=== PATIENT | male | born 1965 | race Caucasian/White ===

== ENCOUNTER 2021-01-08 12:43 | Emergency (ER) | payer OTHER ==
[~2021-01-08 12:43] MED LIST: AMITRIPTYLINE H25 MG PO; ASPIR 8181 MG PO; ASPIRIN EC81 MG PO; AUGMENTIN 875-1 EACH PO; BACTRIM D.S. TAB1 EA PO; CATAPRES 0.1MG0.1 MG PO; CELEXA20 MG PO; CLARITIN10 MG PO; COLACE 100MG C100 MG PO; CYMBALTA 30 MG30 MG PO; EFFEXOR 25 MG T25 MG PO; ENSURE LIQUID237 ML PO; ETODOLAC400 MG PO; HYDROCHLOROTHIA25 MG PO; IBUPROFEN800 MG PO; LIPITOR TAB 2020 MG PO; NEURONTIN 400400 MG PO; NORVASC 5 MG TAB5 MG PO; OXYCODONE HCL30 MG PO; PAIN & FEVER325 MG PO; PHENERGAN 25 MG25 M1 PO; PROTONIX40 MG PO; SYNTHROID 100100 MCG PO; TYLENOL 325MG325 MG PO; TYLENOL EL160 MG/5 M PO; ZOFRAN4 MG PO
[2021-01-08 14:20] LABS: HEMOGLOBIN 15.9 gm/dl (14.0-17.5)
[2021-01-08 14:23] LABS: RED BLOOD COUNT 5.46 M/UL (4.20-5.50); WHITE BLOOD COUNT 10.2 K/UL (4.5-11.0)
[2021-01-08 15:09] LABS: BUN/CREATININE RATIO 6 (0-10)
== END 2021-01-08 19:50 | disposition short-term general hospital (02) ==
LOC: ER1 12:43
PROVIDERS: Physician Assistant
DX: N21.1 Calculus in urethra (principal); R07.89 Other chest pain; I10 Essential (primary) hypertension; R13.10 Dysphagia, unspecified; Z85.89 Personal history of malignant neoplasm of other organs and systems; Z88.1 Allergy status to other antibiotic agents; Z88.8 Allergy status to other drugs, medicaments and biological substances
CPT/HCPCS: 71045; 80053; 81001; 82550; 82553; 83690; 83874; 84484; 85025; 93005; 96374; 96375; 96376; 99285; J2270; J2405; Q9967

== ENCOUNTER 2021-01-16 08:25 | Emergency (ER) | payer OTHER ==
[2021-01-16 09:37] LABS: HEMOGLOBIN 14.9 gm/dl (14.0-17.5); RED BLOOD COUNT 4.96 M/UL (4.20-5.50); WHITE BLOOD COUNT 10.7 K/UL (4.5-11.0)
[2021-01-16 09:57] LABS: BUN/CREATININE RATIO 11 (0-10)
[2021-01-16] MEDS ORDERED: TORADOL 10 MG T10 MG PO (14:14)
== END 2021-01-16 14:30 | disposition home or self-care (01) ==
LOC: ER1 08:25
PROVIDERS: Physician Assistant
DX: N20.2 Calculus of kidney with calculus of ureter (principal); J44.9 Chronic obstructive pulmonary disease, unspecified; F17.210 Nicotine dependence, cigarettes, uncomplicated; Z43.1 Encounter for attention to gastrostomy; Z87.442 Personal history of urinary calculi; Z90.89 Acquired absence of other organs; Z88.8 Allergy status to other drugs, medicaments and biological substances; Z85.21 Personal history of malignant neoplasm of larynx; Z71.6 Tobacco abuse counseling
CPT/HCPCS: 51702; 80048; 81001; 85025; 99284; G0480; J1885

== ENCOUNTER 2021-01-18 08:32 | Emergency (ER) | payer OTHER ==
[~2021-01-18 08:32] MED LIST changes: +TORADOL 10 MG T10 MG PO
== END 2021-01-18 09:55 | disposition home or self-care (01) ==
LOC: ER1 08:32
DX: Z46.6 Encounter for fitting and adjustment of urinary device (principal); Z93.0 Tracheostomy status
CPT/HCPCS: 99283

== ENCOUNTER 2021-01-21 18:04 | Emergency (ER) | payer OTHER ==
[2021-01-21] MEDS ORDERED: BENADRYL 50MG C50 MG PO (19:04)
[2021-01-21] MEDS ORDERED: PEPCID40 MG PO (19:04)
== END 2021-01-21 21:00 | disposition home or self-care (01) ==
LOC: ER1 18:04
DX: L51.9 Erythema multiforme, unspecified (principal); I10 Essential (primary) hypertension; Z85.89 Personal history of malignant neoplasm of other organs and systems; Z90.89 Acquired absence of other organs
CPT/HCPCS: 96372; 99282; J2930

== ENCOUNTER 2021-02-27 17:22 | Emergency (ER) | payer OTHER ==
[~2021-02-27 17:22] MED LIST changes: +BENADRYL 50MG C50 MG PO; +PEPCID40 MG PO
[2021-02-27 18:38] LABS: HEMOGLOBIN 16.1 gm/dl (14.0-17.5); RED BLOOD COUNT 5.53 M/UL (4.20-5.50); WHITE BLOOD COUNT 9.2 K/UL (4.5-11.0)
[2021-02-27 19:00] LABS: BUN/CREATININE RATIO 8 (0-10)
[2021-02-27] MEDS ORDERED: KLOR-CON M1010 MEQ PO (22:25)
[2021-02-28] MEDS ORDERED: AMLODIPINE BESY10 MG PO ×2 (12:10→15:26)
[2021-02-28] MEDS ORDERED: HYDROCODON-ACE1 EAC3 PO ×2 (12:17→15:44)
[2021-02-28] MEDS ORDERED: HYDROCODON-ACE1 EAC4 PO (16:07)
== END 2021-02-27 23:45 | disposition home or self-care (01) ==
LOC: ER1 17:22
PROVIDERS: Nurse Practitioner
DX: E87.6 Hypokalemia (principal); R91.1 Solitary pulmonary nodule; Z20.822 Contact with and (suspected) exposure to COVID-19
CPT/HCPCS: 0240U; 71046; 80053; 81001; 82550; 82553; 83605; 83735; 84484; 85025; 93005; 96365; 96375; 99284; J0696; J1650; J1885; J2060; J2765; J3475; J3480; J7070; Q9967

== ENCOUNTER 2021-02-28 10:22 | Emergency (ER) | payer OTHER ==
[~2021-02-28 10:22] MED LIST changes: +KLOR-CON M1010 MEQ PO
[2021-02-28] MEDS ORDERED: AMLODIPINE BESY10 MG PO ×2 (12:10→15:26)
[2021-02-28] MEDS ORDERED: HYDROCODON-ACE1 EAC3 PO ×2 (12:17→15:44)
[2021-02-28] MEDS ORDERED: HYDROCODON-ACE1 EAC4 PO (16:07)
== END 2021-02-28 13:30 | disposition home or self-care (01) ==
LOC: ER1 10:22
DX: R91.1 Solitary pulmonary nodule (principal); I10 Essential (primary) hypertension; Z79.899 Other long term (current) drug therapy; Z88.8 Allergy status to other drugs, medicaments and biological substances
CPT/HCPCS: 99283; J0780

== ENCOUNTER 2021-03-03 10:20 | Emergency (ER) | payer OTHER ==
[~2021-03-03 10:20] MED LIST changes: +AMLODIPINE BESY10 MG PO; +HYDROCODON-ACE1 EAC3 PO; +HYDROCODON-ACE1 EAC4 PO
[2021-03-03 11:26] LABS: HEMOGLOBIN 15.1 gm/dl (14.0-17.5); RED BLOOD COUNT 5.1 M/UL (4.20-5.50); WHITE BLOOD COUNT 9.4 K/UL (4.5-11.0)
[2021-03-03 12:01] LABS: BUN/CREATININE RATIO 9 (0-10)
[2021-03-03] MEDS ORDERED: HYDROCODON-ACE1 EAC4 PO (14:12)
== END 2021-03-03 14:21 | disposition home or self-care (01) ==
LOC: ER1 10:20
PROVIDERS: Physician Assistant Medical
DX: J43.9 Emphysema, unspecified (principal); R07.89 Other chest pain; R91.1 Solitary pulmonary nodule; I10 Essential (primary) hypertension; Z85.01 Personal history of malignant neoplasm of esophagus; Z20.822 Contact with and (suspected) exposure to COVID-19
CPT/HCPCS: 71045; 80053; 82550; 82553; 83605; 83874; 84484; 85025; 93005; 99284; U0002

== ENCOUNTER 2021-03-08 13:57 | Emergency (ER) | payer OTHER ==
[2021-03-08 15:47] LABS: HEMOGLOBIN 15.1 gm/dl (14.0-17.5); RED BLOOD COUNT 5.09 M/UL (4.20-5.50); WHITE BLOOD COUNT 10.3 K/UL (4.5-11.0)
[2021-03-08 16:31] LABS: BUN/CREATININE RATIO 8 (0-10)
== END 2021-03-08 18:15 | disposition home or self-care (01) ==
LOC: ER1 13:57
DX: B34.9 Viral infection, unspecified (principal); J44.9 Chronic obstructive pulmonary disease, unspecified; F17.210 Nicotine dependence, cigarettes, uncomplicated; Z20.822 Contact with and (suspected) exposure to COVID-19
CPT/HCPCS: 0240U; 71045; 80053; 81001; 83690; 85025; 96374; 99283

== ENCOUNTER 2021-03-25 11:45 | Emergency (ER) | payer OTHER ==
[2021-03-25 12:47] LABS: HEMOGLOBIN 14.5 gm/dl (14.0-17.5); RED BLOOD COUNT 4.94 M/UL (4.20-5.50)
[2021-03-25 13:31] LABS: BUN/CREATININE RATIO 11 (0-10)
[2021-03-25] MEDS ORDERED: HYDROCODON-ACE1 EAC4 PO (16:01)
[2021-03-25] MEDS ORDERED: ASPIRIN CHEWABL81 MG PO (16:03)
== END 2021-03-25 17:55 | disposition home or self-care (01) ==
LOC: ER1 11:45
PROVIDERS: Emergency Medicine
DX: R07.9 Chest pain, unspecified (principal); E87.6 Hypokalemia; I10 Essential (primary) hypertension; E78.00 Pure hypercholesterolemia, unspecified; C78.00 Secondary malignant neoplasm of unspecified lung; Z85.850 Personal history of malignant neoplasm of thyroid
CPT/HCPCS: 80053; 82550; 82553; 83874; 83880; 84484; 85025; 93005; 96365; 96366; 96375; 99285; J2270; J2405; J7030; Q9967

== ENCOUNTER 2021-04-02 10:50 | Emergency (ER) | payer OTHER ==
[~2021-04-02 10:50] MED LIST changes: +ASPIRIN CHEWABL81 MG PO
[2021-04-02 12:06] LABS: HEMOGLOBIN 14.2 gm/dl (14.0-17.5); RED BLOOD COUNT 4.77 M/UL (4.20-5.50); WHITE BLOOD COUNT 6.7 K/UL (4.5-11.0)
[2021-04-02 12:21] LABS: BUN/CREATININE RATIO 12 (0-10)
[2021-04-02] MEDS ORDERED: ASPIRIN CHEWABL81 MG PO (16:13)
== END 2021-04-02 16:24 | disposition home or self-care (01) ==
LOC: ER1 10:50
PROVIDERS: Emergency Medicine
DX: R07.9 Chest pain, unspecified (principal); C34.11 Malignant neoplasm of upper lobe, right bronchus or lung; I10 Essential (primary) hypertension; E87.6 Hypokalemia
CPT/HCPCS: 80053; 82550; 82553; 83874; 84484; 85025; 85610; 85730; 93005; 96374; 96375; 96376; 99285; J2270; J2405; Q9967

== ENCOUNTER 2021-04-06 11:17 | Emergency (ER) | payer OTHER ==
[2021-04-06 12:10] LABS: HEMOGLOBIN 13.3 gm/dl (14.0-17.5); RED BLOOD COUNT 4.52 M/UL (4.20-5.50); WHITE BLOOD COUNT 6.8 K/UL (4.5-11.0)
[2021-04-06 12:36] LABS: BUN/CREATININE RATIO 7 (0-10)
== END 2021-04-06 16:58 | disposition home or self-care (01) ==
LOC: ER1 11:17
PROVIDERS: Emergency Medicine
DX: R07.9 Chest pain, unspecified (principal); Z85.12 Personal history of malignant neoplasm of trachea; Z85.850 Personal history of malignant neoplasm of thyroid
CPT/HCPCS: 71045; 80053; 82550; 82553; 83874; 84484; 85025; 93005; 96374; 96375; 96376; 99285; J2270; J2405; J7040; Q9967

== ENCOUNTER 2021-04-09 10:11 | Emergency (ER) | payer OTHER ==
[2021-04-09 11:57] LABS: HEMOGLOBIN 15.6 gm/dl (14.0-17.5); RED BLOOD COUNT 5.19 M/UL (4.20-5.50); WHITE BLOOD COUNT 11.1 K/UL (4.5-11.0)
[2021-04-09 12:14] LABS: BUN/CREATININE RATIO 9 (0-10)
[2021-04-09] MEDS ORDERED: ZOFRAN ODT 4 MG4 MG PO (15:10)
[2021-04-09] MEDS ORDERED: IMODIUM CAP 2 MG2 MG PO (15:10)
== END 2021-04-09 15:55 | disposition home or self-care (01) ==
LOC: ER1 10:11
PROVIDERS: Family Medicine
DX: R11.2 Nausea with vomiting, unspecified (principal); R19.7 Diarrhea, unspecified; R10.9 Unspecified abdominal pain; R91.8 Other nonspecific abnormal finding of lung field; Z88.8 Allergy status to other drugs, medicaments and biological substances; Z88.1 Allergy status to other antibiotic agents; Z85.118 Personal history of other malignant neoplasm of bronchus and lung
CPT/HCPCS: 80053; 83605; 83690; 83735; 85025; 96374; 96375; 99284; J2270; J2405; Q9967

== ENCOUNTER 2021-05-07 10:48 | Emergency (ER) | payer OTHER ==
[~2021-05-07 10:48] MED LIST changes: +IMODIUM CAP 2 MG2 MG PO; +ZOFRAN ODT 4 MG4 MG PO
[2021-05-07] MEDS ORDERED: HYDROCODONE-AC1 EACH PO (13:01)
== END 2021-05-07 13:20 | disposition home or self-care (01) ==
LOC: ER1 10:48
DX: M25.511 Pain in right shoulder (principal)
CPT/HCPCS: 71046; 99283

== ENCOUNTER 2021-05-20 13:05 | Emergency (ER) | payer OTHER ==
[~2021-05-20 13:05] MED LIST changes: +HYDROCODONE-AC1 EACH PO
[2021-05-20 14:46] LABS: HEMOGLOBIN 13.4 gm/dl (14.0-17.5); RED BLOOD COUNT 4.67 M/UL (4.20-5.50); WHITE BLOOD COUNT 7.9 K/UL (4.5-11.0)
[2021-05-20 15:03] LABS: BUN/CREATININE RATIO 9 (0-10)
[2021-05-20] MEDS ORDERED: TESSALON PERLE100 MG PO (15:56)
[2021-05-20] MEDS ORDERED: ASPIRIN CHEWABL81 MG PO (15:56)
[2021-05-20] MEDS ORDERED: VENTOLIN HFA 66.7 GM INH (15:56)
== END 2021-05-20 16:05 | disposition home or self-care (01) ==
LOC: ER1 13:05
PROVIDERS: Physician Assistant
DX: J40 Bronchitis, not specified as acute or chronic (principal); R07.9 Chest pain, unspecified; Z20.822 Contact with and (suspected) exposure to COVID-19
CPT/HCPCS: 71045; 80053; 82550; 82553; 83874; 84484; 85025; 93005; 99285; U0002

== ENCOUNTER 2021-06-02 12:55 | Emergency (ER) | payer OTHER ==
[~2021-06-02 12:55] MED LIST changes: +TESSALON PERLE100 MG PO; +VENTOLIN HFA 66.7 GM INH
[2021-06-02 13:34] LABS: RED BLOOD COUNT 4.97 M/UL (4.20-5.50); WHITE BLOOD COUNT 9.5 K/UL (4.5-11.0)
[2021-06-02 13:54] LABS: BUN/CREATININE RATIO 8 (0-10)
== END 2021-06-02 17:03 | disposition home or self-care (01) ==
LOC: ER1 12:55
PROVIDERS: Physician Assistant Medical
DX: R05 Cough (principal); R51.9 Headache, unspecified; E87.6 Hypokalemia; Z85.850 Personal history of malignant neoplasm of thyroid; Z20.822 Contact with and (suspected) exposure to COVID-19
CPT/HCPCS: 71045; 80053; 85025; 93005; 99284; U0002

== ENCOUNTER 2021-06-20 14:23 | Emergency (ER) | payer OTHER ==
[2021-06-20 15:12] LABS: HEMOGLOBIN 14.8 gm/dl (14.0-17.5); RED BLOOD COUNT 5.21 M/UL (4.20-5.50); WHITE BLOOD COUNT 10.2 K/UL (4.5-11.0)
[2021-06-20 15:40] LABS: BUN/CREATININE RATIO 15 (0-10)
== END 2021-06-20 20:28 | disposition home or self-care (01) ==
LOC: ER1 14:23
PROVIDERS: Physician Assistant
DX: R13.10 Dysphagia, unspecified (principal); R53.1 Weakness; R42 Dizziness and giddiness; I10 Essential (primary) hypertension; J44.9 Chronic obstructive pulmonary disease, unspecified; E78.5 Hyperlipidemia, unspecified; Z85.118 Personal history of other malignant neoplasm of bronchus and lung; Z93.0 Tracheostomy status
CPT/HCPCS: 71045; 71260; 80053; 82550; 82553; 83874; 84484; 85025; 93005; 99285; Q9967

== ENCOUNTER 2021-06-22 18:20 | Emergency (ER) | payer OTHER ==
[2021-06-22 22:40] LABS: HEMOGLOBIN 14.6 gm/dl (14.0-17.5); RED BLOOD COUNT 5.03 M/UL (4.20-5.50); WHITE BLOOD COUNT 7.8 K/UL (4.5-11.0)
[2021-06-22 23:07] LABS: BUN/CREATININE RATIO 13 (0-10)
== END 2021-06-23 03:50 | disposition home or self-care (01) ==
LOC: ER1 18:20
PROVIDERS: Physician Assistant
DX: R13.10 Dysphagia, unspecified (principal); I10 Essential (primary) hypertension; J44.9 Chronic obstructive pulmonary disease, unspecified
CPT/HCPCS: 71250; 80053; 82550; 82553; 83690; 83735; 83874; 84484; 85025; 85652; 86140; 93005; 99284

== ENCOUNTER 2021-06-23 16:31 | Emergency (ER) | payer OTHER | END 2021-06-24 01:25 | disposition home or self-care (01) | LOC: ER1 16:31 | DX: T18.128A Food in esophagus causing other injury, initial encounter (principal); Z85.118 Personal history of other malignant neoplasm of bronchus and lung; F17.200 Nicotine dependence, unspecified, uncomplicated; W45.8XXA Other foreign body or object entering through skin, initial encounter; Z20.822 Contact with and (suspected) exposure to COVID-19 | CPT/HCPCS: 99283; J2250; J3010; J7040; U0002 ==

== ENCOUNTER 2021-07-15 15:56 | Emergency (ER) | payer OTHER ==
[~2021-07-15 15:56] MED LIST changes: -AMITRIPTYLINE H25 MG PO; +AMITRIPTYLINE H50 MG PO; +ATORVASTATIN CA10 MG PO; -LIPITOR TAB 2020 MG PO
[2021-07-15 17:45] LABS: HEMOGLOBIN 14.1 gm/dl (14.0-17.5); RED BLOOD COUNT 4.68 M/UL (4.20-5.50); WHITE BLOOD COUNT 8.6 K/UL (4.5-11.0)
[2021-07-15] MEDS ORDERED: ZOFRAN4 MG PO (20:11)
== END 2021-07-15 21:33 | disposition home or self-care (01) ==
LOC: ER1 15:56
PROVIDERS: Physician Assistant Medical
DX: R10.84 Generalized abdominal pain (principal); R11.2 Nausea with vomiting, unspecified; E78.5 Hyperlipidemia, unspecified; I10 Essential (primary) hypertension; Z88.8 Allergy status to other drugs, medicaments and biological substances
CPT/HCPCS: 80053; 81001; 83605; 83690; 85025; 96374; 96375; 99284; J2270; J2405

== ENCOUNTER 2021-07-17 12:39 | Inpatient (IN) | payer OTHER ==
[~2021-07-17] VITALS: Ht 165.1 cm; Wt 72.6 kg
[2021-07-17 15:05] LABS: HEMOGLOBIN 14.9 gm/dl (14.0-17.5); RED BLOOD COUNT 4.95 M/UL (4.20-5.50); WHITE BLOOD COUNT 9.4 K/UL (4.5-11.0)
[2021-07-17 15:25] LABS: BUN/CREATININE RATIO 7 (0-10)
[2021-07-17] MEDS ORDERED: PROAIR HFA8.5 GM INH (17:04)
[2021-07-17] MEDS ORDERED: LISINOPRIL10 MG PO (17:07)
[2021-07-17] MEDS ORDERED: ONDANSETRON HCL4 MG PO ×2 (17:08→17:09)
[2021-07-18 07:03] LABS: HEMOGLOBIN 12.7 gm/dl (14.0-17.5); RED BLOOD COUNT 4.27 M/UL (4.20-5.50); WHITE BLOOD COUNT 6.5 K/UL (4.5-11.0)
[2021-07-18 07:10] LABS: BUN/CREATININE RATIO 7 (0-10)
--- NOTE | 2021-07-18 07:20 | NUR ---
attempted to call dr. parson no answer
--- NOTE | 2021-07-18 09:56 | NUR ---
patient communicates using pen and paper
[2021-07-19 06:56] LABS: HEMOGLOBIN 13.4 gm/dl (14.0-17.5); RED BLOOD COUNT 4.54 M/UL (4.20-5.50); WHITE BLOOD COUNT 6.5 K/UL (4.5-11.0)
[2021-07-19 08:52] LABS: BUN/CREATININE RATIO 9 (0-10)
[2021-07-20 08:57] LABS: HEMOGLOBIN 13.8 gm/dl (14.0-17.5); RED BLOOD COUNT 4.69 M/UL (4.20-5.50); WHITE BLOOD COUNT 7.6 K/UL (4.5-11.0)
[2021-07-20 09:28] LABS: BUN/CREATININE RATIO 11 (0-10)
[2021-07-21 05:01] LABS: BUN/CREATININE RATIO 11 (0-10)
[2021-07-21] MEDS ORDERED: PROTONIX 40 MG40 M1 PO (14:43)
--- NOTE | 2021-07-21 16:48 | NUR ---
PT LEFT AT THIS TIME NOTED
== END 2021-07-21 16:47 | disposition home or self-care (01) | DRG 384 ==
LOC: ER1 12:39 → CDU 16:31 → M/S 16:31
PROVIDERS: Emergency Medicine; Physician Assistant; Physician Assistant Medical; ADMIT Internal Medicine
DX: K26.3 Acute duodenal ulcer without hemorrhage or perforation (principal); E87.1 Hypo-osmolality and hyponatremia; Z20.822 Contact with and (suspected) exposure to COVID-19; E87.6 Hypokalemia; F17.210 Nicotine dependence, cigarettes, uncomplicated; I10 Essential (primary) hypertension; N20.0 Calculus of kidney; Z79.01 Long term (current) use of anticoagulants; Z79.82 Long term (current) use of aspirin; Z85.29 Personal history of malignant neoplasm of other respiratory and intrathoracic organs; Z93.0 Tracheostomy status; Z82.49 Family history of ischemic heart disease and other diseases of the circulatory system
CPT/HCPCS: 36415; 74018; 74150; 74160; 74246; 80048; 80053; 81001; 82550; 82553; 83605; 83690; 83735; 83874; 84132; 84484; 85025; 85027; 93005; 96374; 96375; 99285; C9113; J0360; J2185; J2270; J2405; J2543; J7030; Q9963; Q9967; U0002

== ENCOUNTER 2021-07-25 03:28 | Emergency (ER) | payer OTHER ==
[~2021-07-25 03:28] MED LIST changes: +LISINOPRIL10 MG PO; +ONDANSETRON HCL4 MG PO; +PROAIR HFA8.5 GM INH; +PROTONIX 40 MG40 M1 PO
[2021-07-25 04:08] LABS: HEMOGLOBIN 14.5 gm/dl (14.0-17.5); RED BLOOD COUNT 4.83 M/UL (4.20-5.50)
[2021-07-25 04:29] LABS: BUN/CREATININE RATIO 12 (0-10)
[2021-07-25] MEDS ORDERED: FLOMAX0.4 MG PO (07:17)
== END 2021-07-25 07:29 | disposition home or self-care (01) ==
LOC: ER1 03:28
PROVIDERS: Physician Assistant Medical
DX: R10.84 Generalized abdominal pain (principal); R19.7 Diarrhea, unspecified; R11.0 Nausea; J44.9 Chronic obstructive pulmonary disease, unspecified
CPT/HCPCS: 80053; 81001; 83605; 83690; 85025; 96374; 96375; 99284; C9113; J2270; J2405; Q9967

== ENCOUNTER 2021-07-28 19:45 | Emergency (ER) | payer OTHER ==
[~2021-07-28 19:45] MED LIST changes: +FLOMAX0.4 MG PO
[2021-07-28 23:57] LABS: RED BLOOD COUNT 5.31 M/UL (4.20-5.50); WHITE BLOOD COUNT 12.5 K/UL (4.5-11.0)
[2021-07-29 00:13] LABS: BUN/CREATININE RATIO 10 (0-10)
[2021-07-29] MEDS ORDERED: CARAFATE1 GM PO (04:19)
[2021-07-29] MEDS ORDERED: PHENERGAN 12.12.5 M1 PO (04:19)
== END 2021-07-29 05:09 | disposition home or self-care (01) ==
LOC: ER1 19:45
PROVIDERS: Physician Assistant
DX: R10.13 Epigastric pain (principal); R11.2 Nausea with vomiting, unspecified; Z79.1 Long term (current) use of non-steroidal anti-inflammatories (NSAID); Z87.820 Personal history of traumatic brain injury
CPT/HCPCS: 71045; 74019; 80053; 82550; 82553; 83605; 83690; 83874; 84484; 85025; 96374; 96375; 99284; C9113; J2405

== ENCOUNTER 2021-08-01 12:01 | Emergency (ER) | payer OTHER ==
[~2021-08-01 12:01] MED LIST changes: +CARAFATE1 GM PO; +PHENERGAN 12.12.5 M1 PO
[2021-08-01 14:15] LABS: RED BLOOD COUNT 4.37 M/UL (4.20-5.50); WHITE BLOOD COUNT 8.1 K/UL (4.5-11.0)
[2021-08-01 14:35] LABS: HEMOGLOBIN 13.1 gm/dl (14.0-17.5)
[2021-08-01 14:37] LABS: BUN/CREATININE RATIO 12 (0-10)
== END 2021-08-01 16:10 | disposition home or self-care (01) ==
LOC: ER1 12:01
PROVIDERS: Emergency Medicine
DX: R10.84 Generalized abdominal pain (principal); I10 Essential (primary) hypertension; J45.909 Unspecified asthma, uncomplicated
CPT/HCPCS: 80053; 81001; 83605; 83690; 85025; 86140; 96372; 99284; J2550

== ENCOUNTER 2021-09-03 11:47 | Emergency (ER) | payer OTHER ==
[2021-09-03 12:55] LABS: HEMOGLOBIN 14.5 gm/dl (14.0-17.5); RED BLOOD COUNT 4.84 M/UL (4.20-5.50); WHITE BLOOD COUNT 8.2 K/UL (4.5-11.0)
[2021-09-03] MEDS ORDERED: TORADOL 10 MG T10 MG PO (17:04)
[2021-09-03] MEDS ORDERED: ONDANSETRON ODT4 MG SL (17:04)
[2021-09-03] MEDS ORDERED: K-TAB ER20 MEQ PO (17:07)
== END 2021-09-03 17:35 | disposition home or self-care (01) ==
LOC: ER1 11:47
PROVIDERS: Physician Assistant
DX: N20.0 Calculus of kidney (principal); E87.6 Hypokalemia; R31.9 Hematuria, unspecified; I10 Essential (primary) hypertension; Z79.82 Long term (current) use of aspirin
CPT/HCPCS: 80053; 81001; 83690; 85025; 96374; 96375; 99284; J1885; J2270; J2405

== ENCOUNTER 2021-09-05 15:28 | Emergency (ER) | payer OTHER ==
[~2021-09-05 15:28] MED LIST changes: +K-TAB ER20 MEQ PO; +ONDANSETRON ODT4 MG SL
[2021-09-05 17:47] LABS: HEMOGLOBIN 14.3 gm/dl (14.0-17.5); RED BLOOD COUNT 5.04 M/UL (4.20-5.50); WHITE BLOOD COUNT 9.7 K/UL (4.5-11.0)
[2021-09-05 17:51] LABS: BUN/CREATININE RATIO 10 (0-10)
[2021-09-05] MEDS ORDERED: ONDANSETRON ODT4 MG SL (21:23)
[2021-09-05] MEDS ORDERED: PROTONIX40 MG PO (21:23)
== END 2021-09-05 21:40 | disposition home or self-care (01) ==
LOC: ER1 15:28
PROVIDERS: Physician Assistant
DX: R10.11 Right upper quadrant pain (principal); R10.811 Right upper quadrant abdominal tenderness; K21.9 Gastro-esophageal reflux disease without esophagitis
CPT/HCPCS: 76705; 80053; 81001; 83690; 85025; 96374; 96375; 99284; C9113; J2270; J2405; J7030

== ENCOUNTER 2021-10-01 11:31 | Emergency (ER) | payer OTHER ==
[2021-10-01] MEDS ORDERED: IBUPROFEN600 MG PO (13:10)
== END 2021-10-01 13:30 | disposition home or self-care (01) ==
LOC: ER1 11:31
DX: R07.81 Pleurodynia (principal); Z85.118 Personal history of other malignant neoplasm of bronchus and lung; Z85.818 Personal history of malignant neoplasm of other sites of lip, oral cavity, and pharynx; W01.0XXA Fall on same level from slipping, tripping and stumbling without subsequent striking against object, initial encounter
CPT/HCPCS: 71045; 99283

== ENCOUNTER 2021-11-27 16:42 | Emergency (ER) | payer OTHER ==
[~2021-11-27 16:42] MED LIST changes: -AMITRIPTYLINE H50 MG PO; +AMITRIPTYLINE100 MG PO; +IBUPROFEN600 MG PO
[2021-11-27 17:40] LABS: HEMOGLOBIN 13.2 gm/dl (14.0-17.5); RED BLOOD COUNT 4.49 M/UL (4.20-5.50); WHITE BLOOD COUNT 16.6 K/UL (4.5-11.0)
== END 2021-11-27 22:00 | disposition left against medical advice (07) ==
LOC: ER1 16:42
PROVIDERS: Nurse Practitioner
DX: N17.9 Acute kidney failure, unspecified (principal); I10 Essential (primary) hypertension; E87.6 Hypokalemia; J44.9 Chronic obstructive pulmonary disease, unspecified; F17.210 Nicotine dependence, cigarettes, uncomplicated; Z20.822 Contact with and (suspected) exposure to COVID-19
CPT/HCPCS: 0240U; 71045; 80053; 81001; 82150; 82550; 82553; 83690; 83874; 84484; 85025; 93005; 96374; 96375; 99283; J2270; J2405; Q9967

== ENCOUNTER 2021-11-29 23:26 | Inpatient (IN) | payer OTHER ==
[2021-11-30 02:19] LABS: HEMOGLOBIN 13.9 gm/dl (14.0-17.5); RED BLOOD COUNT 4.67 M/UL (4.20-5.50); WHITE BLOOD COUNT 19.5 K/UL (4.5-11.0)
[2021-11-30 03:02] LABS: BUN/CREATININE RATIO 15 (0-10)
[2021-11-30] MEDS ORDERED: ZOFRAN ODT 4 MG4 MG PO (10:36)
[2021-11-30] MEDS ORDERED: AMOX TR-K CLV1 EAC4 PO (10:36)
[2021-11-30] MEDS ORDERED: POTASSIUM CHLO20 ME2 PO (10:37)
[2021-11-30] MEDS ORDERED: AMLODIPINE BESY10 MG PO (10:37)
[2021-11-30] MEDS ORDERED: IBU800 MG PO (10:37)
[2021-12-01 09:40] LABS: HEMOGLOBIN 12.2 gm/dl (14.0-17.5); RED BLOOD COUNT 4.19 M/UL (4.20-5.50); WHITE BLOOD COUNT 11.1 K/UL (4.5-11.0)
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
[2021-12-02 03:59] LABS: HEMOGLOBIN 12.1 gm/dl (14.0-17.5); RED BLOOD COUNT 4.14 M/UL (4.20-5.50); WHITE BLOOD COUNT 9.7 K/UL (4.5-11.0)
[2021-12-02 04:31] LABS: BUN/CREATININE RATIO 10 (0-10)
[2021-12-03 03:30] LABS: BUN/CREATININE RATIO 8 (0-10)
[2021-12-03] MEDS ORDERED: DOCUSATE SODIU100 MG PO (08:54)
[2021-12-03] MEDS ORDERED: PROTONIX 40 MG40 M1 PO (08:54)
[2021-12-03] MEDS ORDERED: POLYETHYLENE GL17 GM PO (08:54)
[2021-12-03] MEDS ORDERED: LEVOFLOXACIN500 MG PO (08:54)
[2021-12-03] MEDS ORDERED: FLAGYL 250 MG250 MG PO (08:54)
[2021-12-04 03:24] LABS: BUN/CREATININE RATIO 8 (0-10)
[2021-12-05 07:27] LABS: HEMOGLOBIN 11.5 gm/dl (14.0-17.5); RED BLOOD COUNT 3.96 M/UL (4.20-5.50); WHITE BLOOD COUNT 7.1 K/UL (4.5-11.0)
[2021-12-05 07:30] LABS: BUN/CREATININE RATIO 7 (0-10)
[2021-12-06 06:14] LABS: HEMOGLOBIN 11.2 gm/dl (14.0-17.5); RED BLOOD COUNT 3.86 M/UL (4.20-5.50); WHITE BLOOD COUNT 5.5 K/UL (4.5-11.0)
[2021-12-06 07:16] LABS: BUN/CREATININE RATIO 9 (0-10)
[2021-12-07 09:47] LABS: HEMOGLOBIN 11.8 gm/dl (14.0-17.5); RED BLOOD COUNT 4.07 M/UL (4.20-5.50); WHITE BLOOD COUNT 5.7 K/UL (4.5-11.0)
[2021-12-08 04:01] LABS: BUN/CREATININE RATIO 9 (0-10)
[2021-12-08 04:04] LABS: HEMOGLOBIN 12.6 gm/dl (14.0-17.5); RED BLOOD COUNT 4.46 M/UL (4.20-5.50); WHITE BLOOD COUNT 6.4 K/UL (4.5-11.0)
[2021-12-09 09:34] LABS: HEMOGLOBIN 10.7 gm/dl (14.0-17.5); RED BLOOD COUNT 3.81 M/UL (4.20-5.50); WHITE BLOOD COUNT 7.9 K/UL (4.5-11.0)
[2021-12-09 09:54] LABS: BUN/CREATININE RATIO 11 (0-10)
[2021-12-10 09:05] LABS: HEMOGLOBIN 12.2 gm/dl (14.0-17.5); WHITE BLOOD COUNT 8.6 K/UL (4.5-11.0)
[2021-12-10 09:06] LABS: RED BLOOD COUNT 4.24 M/UL (4.20-5.50)
[2021-12-10 09:29] LABS: BUN/CREATININE RATIO 14 (0-10)
[2021-12-11 06:45] LABS: HEMOGLOBIN 12.2 gm/dl (14.0-17.5); RED BLOOD COUNT 4.19 M/UL (4.20-5.50)
[2021-12-11 07:04] LABS: BUN/CREATININE RATIO 14 (0-10)
[2021-12-11 07:45] LABS: WHITE BLOOD COUNT 14.1 K/UL (4.5-11.0)
[2021-12-12 04:37] LABS: HEMOGLOBIN 11.8 gm/dl (14.0-17.5); RED BLOOD COUNT 4.04 M/UL (4.20-5.50)
[2021-12-12 04:49] LABS: WHITE BLOOD COUNT 22.3 K/UL (4.5-11.0)
[2021-12-12 04:56] LABS: BUN/CREATININE RATIO 15 (0-10)
--- NOTE | 2021-12-12 10:03 | NUR ---
pt agitated this am, i was not able to do an assessment due to his persistence to leave ama, family at bedside he is writing he wants to leave now! on paper due to his inability to speak due to his trach dr guzman called to see him. she said he could go against medical advice. security has also been made aware due to some issues from early in his admission. iv removed and his ama papr has been signed.
== END 2021-12-12 13:37 | disposition left against medical advice (07) | DRG 392 ==
LOC: ER1 23:26 → CDU 11-30 08:26 → MED SURG 4 11-30 09:48
PROVIDERS: Internal Medicine; Physician Assistant; Physician Assistant Medical; ADMIT Internal Medicine
DX: K57.12 Diverticulitis of small intestine without perforation or abscess without bleeding (principal); R04.2 Hemoptysis; J44.1 Chronic obstructive pulmonary disease with (acute) exacerbation; E87.2 Acidosis; Z20.822 Contact with and (suspected) exposure to COVID-19; K52.89 Other specified noninfective gastroenteritis and colitis; I10 Essential (primary) hypertension; E87.6 Hypokalemia; D72.829 Elevated white blood cell count, unspecified; J20.9 Acute bronchitis, unspecified; K59.00 Constipation, unspecified; Z85.89 Personal history of malignant neoplasm of other organs and systems; Z93.0 Tracheostomy status; Z98.890 Other specified postprocedural states; Z87.891 Personal history of nicotine dependence; Z82.49 Family history of ischemic heart disease and other diseases of the circulatory system; Z88.8 Allergy status to other drugs, medicaments and biological substances; Z79.899 Other long term (current) drug therapy
CPT/HCPCS: 36415; 70490; 71046; 71250; 74018; 80048; 80053; 82550; 82553; 83605; 83690; 83735; 83874; 83880; 84132; 84484; 85025; 85027; 86140; 90471; 93005; 94640; 94664; 94760; 96374; 96375; 97161; 99285; J1650; J1885; J1956; J2270; J2405; J2543; J2920; J3475; J3480; J7030; J7120; Q9967; U0002

== ENCOUNTER 2021-12-17 11:28 | Inpatient (IN) | payer OTHER ==
[~2021-12-17] VITALS: Ht 165.1 cm; Wt 63.5 kg
[~2021-12-17 11:28] MED LIST changes: +AMOX TR-K CLV1 EAC4 PO; +DOCUSATE SODIU100 MG PO; +FLAGYL 250 MG250 MG PO; +IBU800 MG PO; +LEVOFLOXACIN500 MG PO; +POLYETHYLENE GL17 GM PO; +POTASSIUM CHLO20 ME2 PO
[2021-12-17 13:03] LABS: RED BLOOD COUNT 4.92 M/UL (4.20-5.50); WHITE BLOOD COUNT 16.4 K/UL (4.5-11.0)
[2021-12-17 13:04] LABS: HEMOGLOBIN 14.6 gm/dl (14.0-17.5)
[2021-12-17 13:33] LABS: BUN/CREATININE RATIO 10 (0-10)
--- NOTE | 2021-12-18 02:05 | NUR ---
AT TIME OF D/C OF IV PT IS WRITING HE WANTS A PICC LINE PLACED. ADVISED PT I WOULD NOTIFIED ON COMING NURSE FOR DAY SHIFT DOCTOR.
[2021-12-18 02:19] LABS: HEMOGLOBIN 15.5 gm/dl (14.0-17.5)
[2021-12-18 02:29] LABS: RED BLOOD COUNT 5.49 M/UL (4.20-5.50); WHITE BLOOD COUNT 21.4 K/UL (4.5-11.0)
[2021-12-18 02:45] LABS: BUN/CREATININE RATIO 14 (0-10)
--- NOTE | 2021-12-18 09:33 | NUR ---
attempted to start iv acess with no success.
--- NOTE | 2021-12-18 09:57 | NUR ---
informed Dr. Bolden of patient no iv acess and patient request for picc line placement. acknoweldged
[2021-12-19 02:57] LABS: HEMOGLOBIN 12.4 gm/dl (14.0-17.5); RED BLOOD COUNT 4.31 M/UL (4.20-5.50)
[2021-12-19 03:32] LABS: BUN/CREATININE RATIO 9 (0-10)
[2021-12-20 07:04] LABS: BUN/CREATININE RATIO 10 (0-10)
[2021-12-20 07:06] LABS: HEMOGLOBIN 11.5 gm/dl (14.0-17.5); RED BLOOD COUNT 3.97 M/UL (4.20-5.50); WHITE BLOOD COUNT 10.2 K/UL (4.5-11.0)
[2021-12-21 07:00] LABS: BUN/CREATININE RATIO 8 (0-10)
[2021-12-21 07:47] LABS: HEMOGLOBIN 11.5 gm/dl (14.0-17.5); RED BLOOD COUNT 3.93 M/UL (4.20-5.50)
[2021-12-21 07:48] LABS: WHITE BLOOD COUNT 7.4 K/UL (4.5-11.0)
[2021-12-21] MEDS ORDERED: STIMULANT LAXA1 EACH PO (10:11)
[2021-12-21] MEDS ORDERED: POLYETHYLENE GL17 GM PO (10:20)
--- NOTE | 2021-12-21 13:31 | NUR ---
WENT INTO ROOM TO DC PT. PT NOT IN ROOM. ALL PERSONAL BELONGINGS GONE. ATTEMPTED TO CALL FAMILY MEMBERS ON FILE. STATES THEY PICKED PT UP AND WILL BIOCHEMICAL DEVELOPMENT ENGINEER PRESCRIPTIONS SENT IN TO PHARMACY BUT WILL NOT RETURN TO HOSPITAL TO SIGN PAPERS OR BIOCHEMICAL DEVELOPMENT ENGINEER DC PACKET.
== END 2021-12-21 13:14 | disposition home or self-care (01) | DRG 391 ==
LOC: ER1 11:28 → M/S 16:20 → CDU 16:20 → M/S 16:20
PROVIDERS: Nurse Practitioner; Physician Assistant Medical; ADMIT Internal Medicine
DX: K29.90 Gastroduodenitis, unspecified, without bleeding (principal); K85.90 Acute pancreatitis without necrosis or infection, unspecified; E87.2 Acidosis; K27.9 Peptic ulcer, site unspecified, unspecified as acute or chronic, without hemorrhage or perforation; I10 Essential (primary) hypertension; Z20.822 Contact with and (suspected) exposure to COVID-19; K59.09 Other constipation; E86.0 Dehydration; D72.829 Elevated white blood cell count, unspecified; E87.6 Hypokalemia; K21.9 Gastro-esophageal reflux disease without esophagitis; T39.395A Adverse effect of other nonsteroidal anti-inflammatory drugs [NSAID], initial encounter; Z93.0 Tracheostomy status; Z90.89 Acquired absence of other organs; Z98.890 Other specified postprocedural states; Z87.891 Personal history of nicotine dependence; Z82.49 Family history of ischemic heart disease and other diseases of the circulatory system; Z79.899 Other long term (current) drug therapy
CPT/HCPCS: 0240U; 36415; 71045; 80048; 80053; 81001; 82150; 82550; 82553; 83605; 83690; 83735; 84132; 84484; 85025; 85027; 87040; 93005; 96374; 96375; 96376; 99285; C1751; C9113; G0378; J2185; J2270; J2405; J2550; J7030; Q9967

== ENCOUNTER 2022-01-12 19:35 | Emergency (ER) | payer OTHER ==
[~2022-01-12 19:35] MED LIST changes: +STIMULANT LAXA1 EACH PO
[2022-01-12 22:12] LABS: HEMOGLOBIN 16.5 gm/dl (14.0-17.5); RED BLOOD COUNT 5.38 M/UL (4.20-5.50); WHITE BLOOD COUNT 14.7 K/UL (4.5-11.0)
[2022-01-12 22:42] LABS: BUN/CREATININE RATIO 14 (0-10)
[2022-01-13] MEDS ORDERED: PROTONIX 40 MG40 M1 PO (02:50)
== END 2022-01-13 03:12 | disposition home or self-care (01) ==
LOC: ER1 19:35
PROVIDERS: Physician Assistant Medical
DX: K26.9 Duodenal ulcer, unspecified as acute or chronic, without hemorrhage or perforation (principal); K25.9 Gastric ulcer, unspecified as acute or chronic, without hemorrhage or perforation; E78.5 Hyperlipidemia, unspecified; Z85.818 Personal history of malignant neoplasm of other sites of lip, oral cavity, and pharynx
CPT/HCPCS: 80053; 81001; 83605; 83690; 85025; 96374; 96375; 99284; J2270; J2405; Q9967

== ENCOUNTER 2022-05-11 17:35 | Emergency (ER) | payer OTHER ==
[2022-05-11 20:07] LABS: HEMOGLOBIN 10.7 gm/dl (14.0-17.5); RED BLOOD COUNT 3.75 M/UL (4.20-5.50); WHITE BLOOD COUNT 6.9 K/UL (4.5-11.0)
== END 2022-05-11 23:33 | disposition home or self-care (01) ==
LOC: ER1 17:35
PROVIDERS: Physician Assistant
DX: R07.9 Chest pain, unspecified (principal); R05.9 Cough, unspecified; J44.9 Chronic obstructive pulmonary disease, unspecified; I10 Essential (primary) hypertension; Z85.01 Personal history of malignant neoplasm of esophagus; Z51.81 Encounter for therapeutic drug level monitoring
CPT/HCPCS: 71045; 80053; 82550; 82553; 83605; 83880; 84484; 85025; 85379; 85610; 85730; 87040; 93005; 99285; Q9967